=== PATIENT | female | born 1975 | race Two or more races ===

== ENCOUNTER → 2018-12-28 | Outpatient (CLI) | payer OTHER ==
[~2018-12-28] MED LIST: ACYC400T PO; ALBU8.5H6 IH; ATOR10TA PO; AZIT250T PO; GABA600T PO; LINA1TAB5 PO; LISI10TA2 PO; ZOLP10TA PO
== END | disposition home or self-care (01) ==
LOC: KCIC CT 10:31
PROVIDERS: ATTEND Urology
DX: R31.9 Hematuria, unspecified (principal)
CPT/HCPCS: 82565

== ENCOUNTER → 2019-01-07 | Outpatient (CLI) | payer OTHER ==
--- NOTE | 2019-01-07 13:16 | RAD ---
EXAM: CT angiography of the chest with intravenous contrast; abdomen and pelvis CT with intravenous contrast. HISTORY: Chest pain and hematuria. TECHNIQUE: Computed tomographic images of the chest, abdomen and pelvis were obtained following the administration of 100 cc Omnipaque 350 intravenous contrast according to angiography protocol. Multiplanar reformatting was performed and 3-dimensional maximum intensity projection images were obtained. *One or more of the following individualized dose reduction techniques were utilized for this examination: 1. Automated exposure control. 2. Adjustment of the mA and/or kV according to patient size. 3. Use of iterative reconstruction technique. COMPARISON: 05/20/2013. FINDINGS: Chest: The heart is upper normal in size. The aorta is normal in caliber. No pathologically enlarged central lymph node is seen. There is a nonspecific prominent right hilar lymph node measuring 1.2 cm, likely physiologic or reactive in etiology. Evaluation for pulmonary embolism is significantly limited due to suboptimal contrast opacification of the pulmonary arteries. No central embolism is seen. There is no pneumothorax or pleural effusion. There is nonspecific groundglass opacity throughout both lungs in a peripheral and lower lobe distribution. No consolidation is seen. No suspicious pulmonary nodule is seen. Abdomen and pelvis: There is hepatomegaly and hepatic steatosis. The gallbladder is surgically absent. There is a small benign calcification adjacent to the falciform ligament. The pancreas, spleen and adrenal glands are unremarkable. No convincing renal or ureteral stone is seen. There are multiple pelvic phleboliths adjacent to the distal ureters. No solid or cystic renal lesion is seen. There is no hydronephrosis. No convincing urinary bladder lesion is seen. There is no appendicitis. There is no bowel obstruction. There is moderate colonic stool. There is distal colonic diverticulosis without diverticulitis. The uterus is unremarkable. There are small ovarian follicles. There is no suspicious osseous lesion. IMPRESSION: 1. Limited evaluation for pulmonary embolism due to suboptimal contrast opacification of the pulmonary arteries. No central embolism is seen. 2. No evidence of nephrolithiasis, hydronephrosis or intrinsic urothelial lesion, with evaluation limited due to timing of contrast bolus administration and absence of noncontrast images. 3. Suspected trace pulmonary congestion with superimposed lower lobe predominant atelectasis. No consolidation is seen. 4. Colonic diverticulosis. 5. Hepatomegaly and hepatic steatosis. Electronically signed by: Tosha López MD (01/07/2019 1:13 PM) [place] [id number]
== END | disposition home or self-care (01) ==
LOC: CT 10:34
PROVIDERS: ATTEND Internal Medicine Pulmonary Disease
DX: K57.30 Diverticulosis of large intestine without perforation or abscess without bleeding (principal); K76.0 Fatty (change of) liver, not elsewhere classified; R16.0 Hepatomegaly, not elsewhere classified; I87.8 Other specified disorders of veins
CPT/HCPCS: 74177

== ENCOUNTER → 2019-01-07 | Outpatient (CLI) | payer OTHER ==
[~2019-01-07] MED LIST changes: +CONTRAST GIVEN. MC PRN; +IOHEXOL 350 MG/ML 100 ML VIAL. IV ONE
--- NOTE | 2019-01-07 13:16 | RAD ---
EXAM: CT angiography of the chest with intravenous contrast; abdomen and pelvis CT with intravenous contrast. HISTORY: Chest pain and hematuria. TECHNIQUE: Computed tomographic images of the chest, abdomen and pelvis were obtained following the administration of 100 cc Omnipaque 350 intravenous contrast according to angiography protocol. Multiplanar reformatting was performed and 3-dimensional maximum intensity projection images were obtained. *One or more of the following individualized dose reduction techniques were utilized for this examination: 1. Automated exposure control. 2. Adjustment of the mA and/or kV according to patient size. 3. Use of iterative reconstruction technique. COMPARISON: 05/20/2013. FINDINGS: Chest: The heart is upper normal in size. The aorta is normal in caliber. No pathologically enlarged central lymph node is seen. There is a nonspecific prominent right hilar lymph node measuring 1.2 cm, likely physiologic or reactive in etiology. Evaluation for pulmonary embolism is significantly limited due to suboptimal contrast opacification of the pulmonary arteries. No central embolism is seen. There is no pneumothorax or pleural effusion. There is nonspecific groundglass opacity throughout both lungs in a peripheral and lower lobe distribution. No consolidation is seen. No suspicious pulmonary nodule is seen. Abdomen and pelvis: There is hepatomegaly and hepatic steatosis. The gallbladder is surgically absent. There is a small benign calcification adjacent to the falciform ligament. The pancreas, spleen and adrenal glands are unremarkable. No convincing renal or ureteral stone is seen. There are multiple pelvic phleboliths adjacent to the distal ureters. No solid or cystic renal lesion is seen. There is no hydronephrosis. No convincing urinary bladder lesion is seen. There is no appendicitis. There is no bowel obstruction. There is moderate colonic stool. There is distal colonic diverticulosis without diverticulitis. The uterus is unremarkable. There are small ovarian follicles. There is no suspicious osseous lesion. IMPRESSION: 1. Limited evaluation for pulmonary embolism due to suboptimal contrast opacification of the pulmonary arteries. No central embolism is seen. 2. No evidence of nephrolithiasis, hydronephrosis or intrinsic urothelial lesion, with evaluation limited due to timing of contrast bolus administration and absence of noncontrast images. 3. Suspected trace pulmonary congestion with superimposed lower lobe predominant atelectasis. No consolidation is seen. 4. Colonic diverticulosis. 5. Hepatomegaly and hepatic steatosis. Electronically signed by: Tosha López MD (01/07/2019 1:13 PM) [place] [id number]
== END | disposition home or self-care (01) ==
LOC: CT 10:33
PROVIDERS: ATTEND Internal Medicine Critical Care Medicine
DX: K57.30 Diverticulosis of large intestine without perforation or abscess without bleeding (principal); K76.0 Fatty (change of) liver, not elsewhere classified; R16.0 Hepatomegaly, not elsewhere classified; I26.99 Other pulmonary embolism without acute cor pulmonale; I87.8 Other specified disorders of veins
CPT/HCPCS: 71275; Q9967

== ENCOUNTER → 2019-01-07 | Outpatient (CLI) | payer OTHER ==
[~2019-01-07] MED LIST changes: -CONTRAST GIVEN. MC PRN; -IOHEXOL 350 MG/ML 100 ML VIAL. IV ONE
--- NOTE | 2019-01-07 09:39 | KCIC ---
Bilateral diagnostic digital mammograms with 3-D tomosynthesis: Reason for examination: Bilateral nipple pain for several months. Comparison is made to previous study dated 11/26/2011. Bilateral mammograms in CC and oblique projections were obtained with 2-D imaging and 3-D tomosynthesis imaging on a Siemens Inspiration unit and reviewed on the workstation. Interpretation was made with the benefit of CAD. The skin and nipples show no abnormalities. No abnormal axillary lymph nodes are seen. The breast parenchyma is predominantly fatty. (Breast density: Category A.) There are no dominant masses, suspicious calcifications or architectural distortion. Benign calcifications are present. Impression: No evidence of malignancy. Ultrasound to follow. BI-RAD Category 0: Complete. Needs additional imaging evaluation. Bilateral breast ultrasound: Bilateral whole breast ultrasound including evaluation of all 4 quadrants and the retroareolar and axillary regions of both breasts was performed. There is no evidence of significant ductal ectasia or cystic or solid nodules seen in either breast. No abnormal appearing lymph nodes are seen in the axilla. IMPRESSION: No focal abnormality seen in either breast sonographically. Recommend routine mammographic follow-up. BI-RADS Category 2: Benign. "Our facility is accredited by the [employer] Mammography [employer]." This patient's information has been entered into a reminder system for the patient to be notified with the results of her examination and a target date for the next mammogram. Electronically signed by: Eva Trent MD (01/07/2019 9:37 AM) [id number]
== END | disposition home or self-care (01) ==
LOC: KCIC MAMMO 08:05
PROVIDERS: ATTEND Nurse Practitioner Family
DX: R92.8 Other abnormal and inconclusive findings on diagnostic imaging of breast (principal); N64.4 Mastodynia
CPT/HCPCS: 76641; 77066; G0279; 77062

== ENCOUNTER → 2019-01-11 | Outpatient (CLI) | payer OTHER ==
[~2019-01-11] MED LIST changes: +PERFLUTREN PROTEIN-A MICROSPHR 0.22 MG/ML 3 ML VIAL. IV ONE
--- NOTE | 2019-01-11 10:08 | CARD ---
MR#: [id number] Date of Study: 01/11/2019 Ordering Physician: ANMOL WEBSTER, Referring Physician: Chaitanya OBRIEN: Hina Cota APPROVED REPORT EXAM: Two-dimensional and M-mode echocardiogram with Doppler and color Doppler. Other Information Quality : PoorHR: 101bpm INDICATION Hypoxia, Echo Enhancing Agent Indication: Endocardial border delineation Agent/Amount Used: Optison 2mL 2D DIMENSIONS RVDd3.3 (2.9-3.5cm)Left Atrium(2D)3.9 (1.6-4.0cm) IVSd1.7 (0.7-1.1cm)Aortic Root(2D)2.1 (2.0-3.7cm) LVDd3.6 (3.9-5.9cm)LVOT Diameter1.9 (1.8-2.4cm) PWd1.2 (0.7-1.1cm)LVDs2.5 (2.5-4.0cm) FS (%) 30.9 %SV31.7 ml LVEF(%)59.5 (>50%) Aortic Valve AoV Peak Nick.134.7cm/sAoV VTI28.8cm AO Peak GR.7.3mmHgLVOT Peak Nick.109.2cm/s AO Mean GR.4mmHgAVA (VMAX)2.35cm2 Mitral Valve MV E Yyipgayu89.0cm/sMV E Peak Gr.5mmHg MV DECEL [id number] A Yxffnqrm31.4cm/s MV E Mean Gr.3mmHgE/A Ratio0.9 Pulmonary Valve PV Peak Xxdyqcwm400.9cm/s Tricuspid Valve RAP [id number] LEFT VENTRICLE The left ventricle is normal size. There is mild to moderate concentric left ventricular hypertrophy. The left ventricular systolic function is normal. The Ejection Fraction is 60-65%. There is normal L V segmental wall motion. Transmitral Doppler flow pattern is Grade I-abnormal relaxation pattern. RIGHT VENTRICLE The right ventricle is normal size. The right ventricular systolic function is normal. ATRIA The left atrium size is normal. The right atrium size is normal. The interatrial septum is intact wit h no evidence for an atrial septal defect or patent foramen ovale as noted on 2-D or Doppler imaging. A Bubble Study was performed which was negative. AORTIC VALVE The aortic valve is not well visualized. Doppler and Color Flow revealed no significant aortic regurg itation. There is no significant aortic valvular stenosis. MITRAL VALVE The mitral valve is not well visualized. There is no evidence of mitral valve prolapse. There is no m itral valve stenosis. Doppler and Color-flow revealed trace mitral regurgitation. TRICUSPID VALVE The tricuspid valve is not well visualized. Doppler and Color Flow revealed trace to mild tricuspid r egurgitation. There is no tricuspid valve stenosis. PULMONIC VALVE The pulmonic valve is not well visualized. Doppler and Color Flow revealed no pulmonic valvular regur gitation. GREAT VESSELS The aortic root is normal in size. The ascending aorta is normal in size. The IVC was not visualized. PERICARDIAL EFFUSION There is no pleural effusion. There is no evidence of significant pericardial effusion. Critical Notification Critical Value: No <Conclusion> Technically difficult study. Optison echo contrast used. The left ventricular systolic function is normal. The Ejection Fraction is 60-65%. There is normal LV segmental wall motion. Transmitral Doppler flow pattern is Grade I-abnormal relaxation pattern. Trace mitral regurgitation. Trace to mild tricuspid regurgitation. There is no evidence of significant pericardial effusion. Bubble study suboptimal due to poor visualization but appeared to be negative. Recommend JESUS for definitive evaluation if clinical suspicion high. Signed by : Myke Clements, Electronically Approved : 01/11/2019 10:07:45
== END | disposition home or self-care (01) ==
LOC: ECHO 07:54
PROVIDERS: ATTEND Internal Medicine Critical Care Medicine
DX: I07.1 Rheumatic tricuspid insufficiency (principal)
CPT/HCPCS: 93306; Q9956